=== PATIENT | male | born 1955 | race Caucasian/White ===

== ENCOUNTER 2017-07-25 09:19 | Day surgery (SDC) | payer OTHER ==
[2017-07-25] MEDS ORDERED: BUPIVACAINE 0.5% (SDV) 30 ML INJ (12:27)
[2017-07-25] MEDS ORDERED: DEXAMETHASONE 4 MG/ML 1 ML INJ ×2 (12:27→12:29)
[2017-07-25] MEDS ORDERED: POLYMYXIN/BACITRACIN 1L IRRIG (12:27)
[2017-07-25] MEDS ORDERED: ROCURONIUM 50 MG INJ (12:29)
[2017-07-25] MEDS ORDERED: ROPIVACAINE 0.5 % 30 ML VIAL (12:29)
[2017-07-25] MEDS ORDERED: FENTAnyl 50 MCG/ML VIAL (12:29)
[2017-07-25] MEDS ORDERED: MIDAZOLAM 1 MG/ML 2 ML INJ (12:29)
[2017-07-25] MEDS ORDERED: NEOSTIGMINE 3 MG/3 ML SYRINGE (12:29)
[2017-07-25] MEDS ORDERED: CEFAZOLIN 1 GM INJ (12:29)
[2017-07-25] MEDS ORDERED: PROPOFOL 20 ML (12:29)
[2017-07-25] MEDS ORDERED: GLYCOPYRROLATE 0.4 MG INJ (12:29)
[2017-07-25] MEDS ORDERED: ONDANSETRON 4 MG INJ (12:29)
[2017-07-25] MEDS ORDERED: EPHEDrine SULFATE 50 MG/5 ML SYG IV (13:00)
[2017-07-25] MEDS ORDERED: OXYCODONE/ACETAMINOPHEN (5/325) TAB PO ×2 (13:00)
[2017-07-25] MEDS ORDERED: TRIMETHOBENZAMIDE 100 MG/ML VIAL IM (13:00)
[2017-07-25] MEDS ORDERED: hydrALAzine 20 MG INJ IV (13:00)
[2017-07-25] MEDS ORDERED: MEPERIDINE 25 MG INJ IV (13:00)
[2017-07-25] MEDS ORDERED: ALBUTEROL 0.083% (NEB) 2.5 MG/3 ML AMP HHN (13:00)
[2017-07-25] MEDS ORDERED: ONDANSETRON 4 MG INJ IV (13:00)
[2017-07-25] MEDS ORDERED: HYDROmorphONE (0.2 MG/ML) 10ML SYG IV ×3 (13:00)
[2017-07-25] MEDS ORDERED: MIDAZOLAM 1 MG/ML 2 ML INJ IV (13:00)
[2017-07-25] MEDS ORDERED: FENTAnyl 50 MCG/ML VIAL IV ×3 (13:00)
[2017-07-25] MEDS ORDERED: IPRATROPIUM (NEB) 0.5 MG/2.5 ML AMP HHN (13:00)
[2017-07-25] MEDS ORDERED: DIPHENHYDRAMINE 50 MG INJ IV (13:00)
[2017-07-25] MEDS ORDERED: LABETALOL HCL 20MG INJ IV (13:00)
[2017-07-25] MEDS ORDERED: SUGAMMADEX SODIUM 200 MG/2 ML VIAL IV (14:28)
[2017-07-25] MEDS: POVIDONE IODINE 10% 28.4 GM OINT (14:56)
== END 2017-07-25 18:15 | disposition home or self-care (01) ==
LOC: SDS 09:19
DX: S92.351A Displaced fracture of fifth metatarsal bone, right foot, initial encounter for closed fracture (principal); X58.XXXA Exposure to other specified factors, initial encounter; E11.9 Type 2 diabetes mellitus without complications; E78.00 Pure hypercholesterolemia, unspecified
CPT/HCPCS: 28485; 73630; 82962